=== PATIENT | female | born 1995 | race Caucasian/White ===

== ENCOUNTER 2017-12-24 15:30 | Emergency (ER) | payer BC ==
--- NOTE | 2017-12-24 16:56 | ED ---
Skin Complaint - HPI Summary HPI Summary: 22-year-old female presents with pilondial cyst since Monday. She stated pain starts to increase. She states she was seen in urgent care 2 days ago started on keflex and told to do Epsom salt soaks. She states there was some drainage from the area but has stopped draining since. She denies any fevers. She denies any spreading redness. They did not drain the area. She has been taking keflex for two days. She states she started to develop back pain today and feels that area feels swollen. She has never had this before. She denies any medical conditions. She denies any history of MRSA. - History of Current Complaint Chief Complaint: EDRashSkinAbscess Time Seen by Provider: 12/24/17 16:17 Stated Complaint: BACK PAIN Pain Intensity: 6 - Allergy/Home Medications Allergies/Adverse Reactions: Allergies Allergy/AdvReac Type Severity Reaction Status Date / Time azithromycin [From Zithromax] Allergy Severe Hives Verified 12/24/17 15:40 PMH/Surg Hx/FS Hx/Imm Hx Endocrine/Hematology History: Denies: Hx Anticoagulant Therapy Cardiovascular History: Denies: Hx Hypertension Infectious Disease History: No Infectious Disease History: Denies: Traveled Outside the [place] in Last 30 Days - Family History Known Family History: Negative: Diabetes - Social History Alcohol Use: Occasionally Substance Use Type: Reports: None Smoking Status (MU): Unknown if Ever Smoked Review of Systems Negative: Fever Negative: Chest Pain Negative: Shortness Of Breath Positive: Other - pilondial cyst All Other Systems Reviewed And Are Negative: Yes Physical Exam Triage Information Reviewed: Yes Vital Signs On Initial Exam: Initial Vitals Temp Pulse Resp BP Pulse Ox 98.3 F 90 16 137/78 100 12/24/17 15:33 12/24/17 15:33 12/24/17 15:33 12/24/17 15:33 12/24/17 15:33 Vital Signs Reviewed: Yes Appearance: Positive: Well-Appearing Skin: Positive: Other - 2cm flucuatant piliondial cyst on left buttock with some swelling of back Head/Face: Positive: Normal Head/Face Inspection Eyes: Positive: Normal, Conjunctiva Clear Respiratory/Lung Sounds: Positive: Clear to Auscultation, Breath Sounds Present Cardiovascular: Positive: Normal, RRR Musculoskeletal: Positive: Normal Neurological: Positive: Normal Psychiatric: Positive: Normal Procedures - Incision and Drainage Site: left buttock Anesthesia: Local Instrument(s): Scalpel Packing: Gauze Diagnostics - Vital Signs Vital Signs Temp Pulse Resp BP Pulse Ox 12/24/17 15:33 98.3 F 90 16 137/78 100 - Laboratory Lab Statement: Any lab studies that have been ordered have been reviewed, and results considered in the medical decision making process. Course/Dx - Course Course Of Treatment: 22-year-old female presents with pilondial cyst since Monday. She stated pain starts to increase. She states she was seen in urgent care 2 days ago started on keflex and told to do Epsom salt soaks. She states there was some drainage from the area but has stopped draining since. She denies any fevers. She denies any spreading redness. They did not drain the area. She has been taking keflex for two days. She states she started to develop back pain today and feels that area feels swollen. She has never had this before. She denies any medical conditions. She denies any history of MRSA. has pilonidal abscess on left buttock. I&D area and got copious amount of pus. packed area. will have continue keflex and follow up for wound check in 2 days. patient understand and agrees with plan. - Differential Diagnoses - Skin Complaint Differential Diagnoses: Abscess, Cellulitis, Contact Dermatitis - Diagnoses Provider Diagnoses: Pilonidal abscess Discharge - Discharge Plan Condition: Good Disposition: HOME Patient Education Materials: Pilonidal Cyst (ED) Referrals: [facility] - Luis M [Primary Care Provider] - Anali Nicole MD [Medical Doctor] - Additional Instructions: Place warm compresses on area Follow up in ED or [place] or urgent care for wound check in 2 days continue antibiotic Take ibuprofen or Tylenol every 6 hours for pain as needed Follow up surgery if gets worst use doughnut pillow Return to Ed if develop any new or worsening symptoms
[2017-12-24] MEDS ORDERED: Lidocaine 1% INJ* 10 MG/ML 30 ML SDV INJ ONE (17:07)
[2017-12-24] MEDS ORDERED: oxyCODONE/Acetamin 5/325 MG* TAB PO ONE (17:30)
[2017-12-24] MEDS ORDERED: Lidocaine 1%* 5 ML VIAL ONE (17:39)
[2017-12-24 19:03] VITALS: BP 122/77
== END 2017-12-24 19:09 | disposition home or self-care (01) ==
LOC: ED 15:30
DX: L05.01 Pilonidal cyst with abscess (principal); Z88.3 Allergy status to other anti-infective agents
CPT/HCPCS: 10080; 87070; 87205; 87640; 87641; 99282; A9270-GY